=== PATIENT | female | born 1990 | race African-American/Black ===

== ENCOUNTER 2017-02-05 11:01 | Emergency (ER) | payer OTHER ==
[2017-02-05 14:39] LABS: BILIRUBIN NEGATIVE (NEGATIVE); BLOOD NEGATIVE Ery/uL (NEGATIVE); CLARITY CLEAR (CLEAR); COLOR YELLOW (YELLOW); GLUCOSE (U) NORMAL (NORMAL); KETONE (U) NEGATIVE (NEGATIVE); LEUKOCYTES NEGATIVE Leu/uL (NEGATIVE); NITRITE NEGATIVE (NEGATIVE); PROTEIN NEGATIVE (NEGATIVE); SPECIFIC GRAVITY 1.015 (1.001-1.030); pH 7.5 (5.0-9.0)
== END 2017-02-05 15:09 | disposition home or self-care (01) ==
LOC: FER 11:01
PROVIDERS: Nurse Practitioner
DX: O20.0 Threatened abortion (principal); Z88.2 Allergy status to sulfonamides; Z3A.01 Less than 8 weeks gestation of pregnancy
CPT/HCPCS: 36415; 76817; 81003; 84702